=== PATIENT | female | born 1980 | race Hispanic/Latino ===

== ENCOUNTER 2017-12-12 10:32 | Emergency (ER) | payer MEDICAID, SELFPAY ==
[2017-12-12 11:30] LABS: #Basophils 0.1 thou/uL (0.0-0.2); #Lymphocytes 1.6 thou/uL (1.20-3.40); #Monocytes 0.6 thou/uL (0.11-0.59); %Basophils 0.8 % (0.0-1.0); %Eosinophils 0.6 % (0.0-10.0); %Lymphocytes 18.9 % (21.0-51.0); %Monocytes 6.8 % (0.0-10.0); Hemoglobin 9.3 g/dL (12.0-16.0); Mean Corpuscular Volume 78.2 fl (81.0-99.0); Mean Platelet Volume 8.9 fL (7.4-10.4); Platelet Count 296 thou/uL (130-400); RBC Distribution Width 15.3 % (11.5-14.5); Red Blood Cell (RBC) Count 3.73 mill/uL (4.20-5.40); White Blood Cell (WBC) Count 8.3 thou/uL (4.8-10.8)
[2017-12-12 11:32] LABS: BHCG - Serum POSITIVE (NEGATIVE); Pregs Control Background? CLEAR/WHITE (CLR/WHITE); Pregs Control Bar Appear? YES (CONTROL BAR)
[2017-12-12 11:49] LABS: ALT (SGPT) 17 U/L (8-55); AST (SGOT) 11 U/L (5-34); Albumin 3.8 g/dL (3.5-5.0); Alkaline Phosphatase 86 U/L (40-150); Anion Gap 11 mmol/L (10-20); BUN (Urea Nitrogen) 9 mg/dL (7.0-18.7); Bilirubin, Total 0.2 mg/dL (0.2-1.2); Calc. Creatinine Clearance 0 mL/min (70-130); Calcium 8.5 mg/dL (7.8-10.44); Carbon Dioxide 24 mmol/L (22-29); Chloride 105 mmol/L (98-107); Estimated GFR-MDRD Greater than 90; Globulin 2.9 g/dL (2.4-3.5); Glucose 97 mg/dL (70-105); Potassium 3.5 mmol/L (3.5-5.1); Protein, Total 6.7 g/dL (6.0-8.3); Sodium 136 mmol/L (136-145)
== END 2017-12-12 13:28 | disposition home or self-care (01) ==
LOC: ERS 10:32
DX: O03.4 Incomplete spontaneous abortion without complication (principal)
CPT/HCPCS: 36415; 80053; 84703; 85025; 86900; 86901; 99284

== ENCOUNTER 2018-07-21 01:52 | Observation (INO) | payer SELFPAY ==
[2018-07-21] MEDS ORDERED: Piperacillin/Tazobactam 4.5 GM VIAL ONE (02:23)
[2018-07-21] MEDS ORDERED: Ondansetron PF 4 MG/2 ML Vial ONE ×2 (02:23→13:15)
[2018-07-21] MEDS ORDERED: Morphine 4 MG/ML VIAL ONE (02:23)
[2018-07-21 02:57] LABS: Hemoglobin 10.2 g/dL (12.0-16.0); Mean Corpuscular HGB CONC 31.2 g/dL (32.0-36.0); Mean Corpuscular Hemoglobin 21.7 pg (27.0-31.0); Mean Corpuscular Volume 69.6 fL (78.0-98.0); Mean Platelet Volume 10.2 fL (7.4-10.4); Platelet Count 408 thou/uL (130-400); RBC Distribution Width 18.8 % (11.5-14.5); White Blood Cell (WBC) Count 16.6 thou/uL (4.8-10.8)
[2018-07-21 03:13] LABS: #Basophils 0.1 thou/uL (0.0-0.2); #Lymphocytes 1.8 thou/uL (1.20-3.40); #Monocytes 1.2 thou/uL (0.11-0.59); #Neutrophils 13.5 thou/uL (1.40-6.50); %Basophils 0.4 % (0.0-1.0); %Eosinophils 0.1 % (0.0-10.0); %Lymphocytes 10.7 % (21.0-51.0); %Monocytes 7.2 % (0.0-10.0); %Neutrophils 81.6 % (42.0-75.0); ALT (SGPT) 14 U/L (8-55); AST (SGOT) 9 U/L (5-34); Albumin 3.8 g/dL (3.5-5.0); Alkaline Phosphatase 91 U/L (40-150); Anion Gap 17 mmol/L (10-20); Anisocytosis SLIGHT = 6-15 cells (100X) (0-5/hpf); BUN (Urea Nitrogen) 7 mg/dL (7.0-18.7); Bilirubin, Total 0.5 mg/dL (0.2-1.2); Calc. Creatinine Clearance 0 mL/min (70-130); Calcium 9.2 mg/dL (7.8-10.44); Carbon Dioxide 21 mmol/L (22-29); Chloride 105 mmol/L (98-107); Elliptocytes SLIGHT = 2-5 cells (100X) (0-1/hpf); Estimated GFR-MDRD Greater than 90; Globulin 3.8 g/dL (2.4-3.5); Glucose 110 mg/dL (70-105); MDiff Complete? YES; Microcytosis SLIGHT = 6-15 cells (100X) (0-5/hpf); Potassium 3.6 mmol/L (3.5-5.1); Protein, Total 7.6 g/dL (6.0-8.3); Sodium 139 mmol/L (136-145)
[2018-07-21 03:37] LABS: BHCG - Serum Negative (NEGATIVE); Pregs Control Background? CLEAR/WHITE (CLR/WHITE); Pregs Control Bar Appear? YES (CONTROL BAR)
[2018-07-21] MEDS ORDERED: Fentanyl 100 MCG/2 ML VIAL ONE ×3 (05:03→12:28)
[2018-07-21 05:26] LABS: Bilirubin Negative (Negative); Blood, Urine Trace (Negative); Clarity CLOUDY (Clear); Glucose, Urine (Dipstick) Negative (Negative); Leukocyte Moderate (Negative); Nitrite Negative (Negative); Protein, Urine (Dipstick) Negative (Neg-Trace); Specific Gravity, Urine 1.042 (1.002-1.036); Urobilinogen 0.2 mg/dL (0.2-1.0)
[2018-07-21 05:29] LABS: Bacteria/HPF Rare-Few HPF (None Seen); Hyaline Casts/LPF 0-3 HYALINE CAST LPF (0-3 Hyaline); Pathc Cast-AUWi Flag 0.14 (0-2.49); WBC/HPF 21-50 HPF (0-3)
[2018-07-21 06:00] VITALS: BMI 31.5
[2018-07-21] MEDS ORDERED: Morphine 4 MG/ML VIAL SLOW IVP PRN (06:07)
[2018-07-21] MEDS ORDERED: Piperacillin/Tazobactam 4.5 GM in Sodium Chloride 0.9% 100 ML IVPB SCH (08:00)
--- NOTE | 2018-07-21 09:35 | CT ---
PRELIMINARY REPORT/[facility]/EMERGENTY AFTER-HOURS PROCEDURE CT Pelvis With Intravenous Contrast EXAM DATE/TIME: 07/21/2018 3:55 AM CLINICAL HISTORY: 38 years old, female; Signs and symptoms; Other: Perenium abcess TECHNIQUE: Axial computed tomography images of the pelvis with intravenous contrast. COMPARISON: No relevant prior studies available. FINDINGS: Stomach and bowel: Visualized small bowel and colon are unremarkable. Appendix: No evidence of appendicitis. Bladder: Normal. No mass. Reproductive: The uterus is normal. Intraperitoneal space: Unremarkable. No free air. No significant fluid collection. Lymph nodes: Unremarkable. No enlarged lymph nodes. Bones/joints: Unremarkable. No acute fracture. No dislocation. Soft tissues: There is a LEFT rim-enhancing 4.9 x 2.8 x 5.1 cm perianal abscess. There is a fat conta ining umbilical hernia. IMPRESSION: LEFT perineal abscess as above. Thank you for allowing us to participate in the care of your patient. Dictated and Authenticated by: Marco Craven MD 07/21/2018 4:10 AM Central Time ([place] & [place]) FINAL REPORT CT PELVIS WITH IV CONTRAST: DATE: 07/21/2018. TIME: Performed on an emergency basis at 0357 hours. HISTORY: Pelvic pain. Abscess. FINDINGS: Agree with the preliminary report by Dr. Craven from [facility]. Fluid collection consistent with abscess is centered at the left perineum, with measurements as detailed in the preliminary repor t. POS: [facility]
[2018-07-21] MEDS ORDERED: ISOVUE-370 76%-LOCM 1 ML ONE (10:11)
[2018-07-21] MEDS ORDERED: Lidocaine 2% Jelly 5 ML TUBE ONE (11:03)
[2018-07-21] MEDS ORDERED: Bupivacaine/Epinephrine 0.25% 30 ML VIAL ONE (11:03)
--- NOTE | 2018-07-21 12:07 | HP ---
DATE OF ADMISSION: 07/21/2018 CHIEF COMPLAINT: Left buttock pain. HISTORY OF PRESENT ILLNESS: This is a 38-year-old female with pain, swelling to her left bu ttock that has been worsening over the last 3-4 days associated with fever, no chills. She is afraid to have a bowel movement, because it hurts so bad. . She denies history of previous abscess t o her perineal area. No history of inflammatory bowel disease. No history of incontinence. PAST MEDICAL HISTORY: She denies. PAST SURGICAL HISTORY: She denies. MEDICINES TAKEN DAILY: None. ALLERGIES: No known drug allergies. SOCIAL HISTORY: No smoking, alcohol or other drugs. REVIEW OF SYSTEMS: Ten system review of systems otherwise negative unless described above. PHYSICAL EXAMINATION: VITAL SIGNS: Blood pressure is 90/52, pulse 75, respirations 22, temperature afebrile. HEENT: Sclerae are anicteric. Oropharynx clear. NECK: No lymphadenopathy. CHEST: Clear. HEART: Regular rate and rhythm. ABDOMEN: Soft, nontender. GENITOURINARY: Examination of her perineum is deferred. LABORATORY DATA AND IMAGING: CT scan shows a left perineal abscess, 4 cm in greatest diameter. Whit e blood cell count of 16, hemoglobin 10, creatinine 0.63. ASSESSMENT: Left perineal abscess. PLAN: Incision and drainage in the operating room, then likely home later today. Risks, benefits, a nd alternatives discussed. She gives consent.
[2018-07-21] MEDS ORDERED: Dextrose 50% Abboject 50 ML SYRINGE SLOW IVP PRN (12:09)
[2018-07-21] MEDS ORDERED: Dextrose 5% in Water 1,000 ML IV PRN (12:09)
[2018-07-21] MEDS ORDERED: hydrALAZINE 20 MG/ML VIAL SLOW IVP PRN (12:09)
[2018-07-21] MEDS ORDERED: HYDROcodone/Acetaminophen 10/325 mg Tablet PO PRN ×2 (12:09)
[2018-07-21] MEDS ORDERED: D5 1/2 NS w/20 mEq KCL 1,000 ML IV SCH (12:09)
[2018-07-21] MEDS ORDERED: Promethazine HCl 25 MG/ML VIAL IM PRN ×2 (12:09→12:24)
[2018-07-21] MEDS ORDERED: Morphine 2 MG/ML SYRINGE SLOW IVP PRN (12:09)
[2018-07-21] MEDS ORDERED: Ondansetron PF 4 MG/2 ML Vial IVP PRN (12:09)
[2018-07-21] MEDS ORDERED: Meperidine HCl/PF 25 MG/ML VIAL SLOW IVP PRN (12:24)
[2018-07-21] MEDS ORDERED: HYDROmorphone 2 MG/ML VIAL SLOW IVP PRN (12:24)
[2018-07-21] MEDS ORDERED: Promethazine HCl 25 MG/ML VIAL SLOW IVP PRN (12:24)
[2018-07-21] MEDS ORDERED: Ketorolac Tromethamine 30 MG/ML VIAL ONE (13:15)
[2018-07-21] MEDS ORDERED: Lidocaine 1% PF 5 ML VIAL ONE (13:15)
[2018-07-21] MEDS ORDERED: Dexamethasone 20 MG/5 ML VIAL ONE (13:15)
[2018-07-21] MEDS ORDERED: PROPOFOL 200 MG/20 ML VIAL ONE (13:15)
[2018-07-21] MEDS ORDERED: Vancomycin HCl 1 GM in Premix Bag 1 BAG IVPB SCH (15:30)
[2018-07-21 18:58] VITALS: BP 97/61; TEMP 99.2
[2018-07-21] MEDS ORDERED: Famotidine 20 MG TAB PO SCH (21:00)
[2018-07-21] MEDS ORDERED: Famotidine/PF 20 mg/2ml Vial SLOW IVP SCH (21:00)
--- NOTE | 2018-07-24 15:13 | DIS ---
DATE OF ADMISSION: 07/21/2018 DATE OF DISCHARGE: 07/21/2018 ADMIT DIAGNOSIS: Perirectal abscess. DISCHARGE DIAGNOSIS: Perirectal abscess. PROCEDURES: Incision and drainage in the OR by Dr. Love without complication. CONDITION ON DISCHARGE: Improved. STAFF: Dr. Love. Please see chart for details of hospitalization. Job ID: [id number]
--- NOTE | 2018-07-24 15:13 | OP ---
DATE OF PROCEDURE: 07/21/2018 PREOPERATIVE DIAGNOSIS: Perirectal abscess. POSTOPERATIVE DIAGNOSIS: Perirectal abscess. PROCEDURE PERFORMED: Incision and drainage, perirectal abscess. ANESTHESIA: General. ESTIMATED BLOOD LOSS: Minimal. COMPLICATIONS: None. SPECIMEN: Cultures taken for anaerobes and aerobes. DESCRIPTION OF PROCEDURE: The patient was taken to the operating room and laid supine on the operating room table. After general anesthetic was obtained, she was placed in lithotomy position and her perianal area was prepped and draped in a sterile fashion. Over the most fluctuant part of the abscess to the left lateral perianal area, an incision was made, exposing some purulent material. All purulence was drained. The patient also had internal and external opening in the area associated with a fistula in ANO, this was laid open. It does not involve the sphincter complex and the wound that was cauterized. Iodoform was packed in the open part of the other abscess. The patient was sent to Recovery in stable condition. All instrument counts, needle counts, and lap counts were correct. Job ID: [id number]
== END 2018-07-21 17:09 | disposition home or self-care (01) ==
LOC: ERS 01:52 → SURG A 04:43
PROVIDERS: ADMIT Surgery; ATTEND Surgery
PROC: 0D9P3ZZ Drainage of Rectum, Percutaneous Approach (ICD-10-PCS; principal; 2018-07-21)
DX: K61.1 Rectal abscess (principal); Z79.52 Long term (current) use of systemic steroids
CPT/HCPCS: 72193; 80053; 81003; 81015; 83605; 84703; 85025; 87040; 87070; 87077; 87086; 87149; 87186; 87205; 96361; 96365; 96367; 96374; 96375; 96376; G0378; J0131; J1100; J1885; J2001; J2270; J2405; J2543; J2704; J3010; J3370; J7050

== ENCOUNTER 2019-01-03 23:01 | Emergency (ER) | payer SELFPAY ==
[2019-01-03 23:58] LABS: #Basophils 0.1 thou/uL (0.0-0.2); #Eosinphils 0.1 thou/uL (0.0-0.7); #Lymphocytes 2.3 thou/uL (1.20-3.40); #Monocytes 0.7 thou/uL (0.11-0.59); #Neutrophils 6.9 thou/uL (1.40-6.50); %Basophils 0.7 % (0.0-1.0); %Monocytes 7.2 % (0.0-10.0); Hemoglobin 8.6 g/dL (12.0-16.0); Mean Corpuscular HGB CONC 30.9 g/dL (32.0-36.0); Mean Platelet Volume 9.7 fL (7.4-10.4); Platelet Count 369 thou/uL (130-400); RBC Distribution Width 17.7 % (11.5-14.5); Red Blood Cell (RBC) Count 4.08 mill/uL (4.20-5.40); White Blood Cell (WBC) Count 10.1 thou/uL (4.8-10.8)
[2019-01-03 23:59] LABS: BHCG - Serum POSITIVE (NEGATIVE); Pregs Control Background? CLEAR/WHITE (CLR/WHITE); Pregs Control Bar Appear? YES (CONTROL BAR)
[2019-01-04 00:15] LABS: ALT (SGPT) 10 U/L (8-55); AST (SGOT) 9 U/L (5-34); Albumin 3.8 g/dL (3.5-5.0); Alkaline Phosphatase 94 U/L (40-150); Anion Gap 9 mmol/L (10-20); BUN (Urea Nitrogen) 9 mg/dL (7.0-18.7); Bilirubin, Total Less than 0.2 mg/dL (0.2-1.2); CK (CPK) 74 U/L (29-168); Calc. Creatinine Clearance 0 mL/min (70-130); Calcium 8.6 mg/dL (7.8-10.44); Carbon Dioxide 25 mmol/L (22-29); Chloride 106 mmol/L (98-107); Estimated GFR-MDRD Greater than 90; Globulin 3.1 g/dL (2.4-3.5); Glucose 108 mg/dL (70-105); Lipase 15 U/L (8-78); Protein, Total 6.9 g/dL (6.0-8.3); Sodium 136 mmol/L (136-145)
[2019-01-04 01:00] LABS: Bilirubin Negative (Negative); Blood, Urine Moderate (Negative); Clarity CLEAR (Clear); Glucose, Urine (Dipstick) Negative (Negative); Leukocyte Moderate (Negative); Nitrite Negative (Negative); Protein, Urine (Dipstick) Negative (Neg-Trace); Specific Gravity, Urine 1.011 (1.002-1.036); Urobilinogen 0.2 mg/dL (0.2-1.0)
[2019-01-04 01:03] LABS: Bacteria/HPF Rare-Few HPF (None Seen); Hyaline Casts/LPF 0-3 HYALINE CAST LPF (0-3 Hyaline); Pathc Cast-AUWi Flag 0.27 (0-2.49); Squamous Epithelial 0-3 HPF (0-3)
--- NOTE | 2019-01-04 07:23 | ULT ---
PRELIMINARY REPORT US , Limited EXAM DATE/TIME: 01/04/2019 12:46 AM CLINICAL HISTORY: 38 years old, female; Pain and signs and symptoms; Lmp or gestational age (in weeks): Lmp 12/25/18; Antepartum complications; Other: Diarrhea; complicated by abdominal or pelvic pain; Lower; First trimester; Gestational age or lmp: Lmp 12/25/18; ; Patient HX: Abd pain, nausea, no abnormal vag bleeding TECHNIQUE: Imaging protocol: Real-time ultrasound of the maternal uterus with image documentation. Exam focused on the clinical indication. COMPARISON: No relevant prior studies available. FINDINGS: GESTATION: Gestation: No obvious ectopic . MATERNAL: Uterus: There is a complex heterogeneous mass lesion that appears to be in the endometrium in the body and lower uterine segment of the uterus that consists of a cystic portion with a central echogen ic nodule. It is not clear whether this is an abnormal appearing gestational sac or other mass. No rangel l appearing pole or sac are identified and there is no heart rate. The echogenic nodule was measured as a possible crown-rump length measuring 10 mm or gestational age 7 weeks 1 day. Left adnexa: There is trace free fluid in the left adnexa. Other findings: Normal Doppler flow of the ovaries. IMPRESSION: 1. There is a complex heterogeneous mass lesion that appears to be in the endometrium in the body and lower uterine segment of the uterus that consists of a cystic portion with a central echogenic nodule. It is not clear whether this is an abnormal appearing gestational sac or other mass. No rangel l appearing pole or sac are identified and there is no heart rate. The echogenic nodule was measured as a possible crown-rump length measuring 10 mm or gestational age 7 weeks 1 day. 2. There is trace free fluid in the left adnexa. 3. No obvious ectopic . Thank you for allowing us to participate in the care of your patient. Dictated and Authenticated by: Obinna Guajardo MD 01/04/2019 2:29 AM Central Time ([place] & [place]) FINAL REPORT: PELVIC SONOGRAM WITH TRANSABDOMINAL AND TRANSVAGINAL IMAGING WITH DUPLEX EVALUATION Performed on Emergency Basis 01/04/2019 at 0051 hours. HISTORY: Pelvic pain. Nausea. FINDINGS: I agree with the preliminary report by Dr. Guajardo from [facility]. Heterogeneously echogenic c omplex mass centered within the endometrial cavity contains a cystic portion and central echogenic nodule. A normal gestational sac is not visualized. Minimal free fluid within the dependent portion o f the pelvis. Good color and spectral Doppler flow within each ovary. Please consider close clinical and sonographic follow-up. Code QA. Transcribed Date/Time: 01/04/2019 8:23 AM
--- NOTE | 2019-01-04 07:24 | ULT ---
PRELIMINARY REPORT US Abdomen Limited, Right Upper Quadrant EXAM DATE/TIME: 01/04/2019 1:06 AM CLINICAL HISTORY: 38 years old, female; Pain and signs and symptoms; Nausea and other: Diarrhea; Abdominal pain; Localized; Lower; ; Patient HX: Midline abd pain, nausea, diarrhea TECHNIQUE: Imaging protocol: Real-time ultrasound of the abdomen with image documentation. Examination was focused on the right upper quadrant. COMPARISON: No relevant prior studies available. FINDINGS: Liver: The hepatic parenchyma is echogenic consistent with diffuse fatty liver. There is mild hepatomegaly with liver length 18 cm. Gallbladder: There is an echogenic calculus in the gallbladder lumen consistent with cholelithiasis with no abnormal gallbladder wall thickening or gallbladder distention and negative sonographic Brooks's sign and therefore not specific for acute cholecystitis. Common bile duct: Normal. No stones. No dilation. Pancreas: The pancreas is partially obscured by overlying bowel gas. Right kidney: The right kidney is partially obscured by bowel gas. IMPRESSION: There is an echogenic calculus in the gallbladder lumen consistent with cholelithiasis with no abnormal gallbladder wall thickening or gallbladder distention and negative sonographic Brooks's sign and therefore not specific for acute cholecystitis. Thank you for allowing us to participate in the care of your patient. Dictated and Authenticated by: Obinna Guajardo MD 01/04/2019 2:19 AM Central Time ([place] & [place]) FINAL REPORT: SONOGRAM RIGHT UPPER QUADRANT Date: 01-04-2019 Performed on emergency basis at 0107 hours. HISTORY: Right upper quadrant pain. FINDINGS: I agree with the preliminary report by Dr. Guajardo from [facility]. Cholelithiasis is confirmed . No sonographic evidence of acute cholecystitis. Hepatic steatosis. Code QA. Transcribed Date/Time: 01/04/2019 8:19 AM
[2019-01-06 23:33] LABS: Chlamydia by PCR Inconclusive (NotDetected); GC by PCR Inconclusive (NotDetected)
== END 2019-01-04 03:01 | disposition home or self-care (01) ==
LOC: ERS 23:01
DX: O20.0 Threatened abortion (principal); O09.91 Supervision of high risk pregnancy, unspecified, first trimester; O99.611 Diseases of the digestive system complicating pregnancy, first trimester; K80.20 Calculus of gallbladder without cholecystitis without obstruction; O23.41 Unspecified infection of urinary tract in pregnancy, first trimester; O99.011 Anemia complicating pregnancy, first trimester; Z3A.01 Less than 8 weeks gestation of pregnancy
CPT/HCPCS: 36415; 76705; 76856; 80053; 81003; 81015; 82550; 83690; 84702; 84703; 85025; 86900; 86901; 87086; 87491; 87591

== ENCOUNTER 2019-01-07 11:36 | Emergency (ER) | payer SELFPAY ==
--- NOTE | 2019-01-07 13:15 | ULT ---
EXAM: US Pelvic Transvag W Doppler DATE: 01/07/2019 12:23 PM INDICATION: Pelvic pain COMPARISON: Pelvic ultrasound dated January 04, 2019 FINDING: Grayscale and color Doppler images were obtained. There is a suspected gestational sac with a mean sac diameter of 6 mm now seen within the upper endom etrial cavity. No definite internal pole or yolk sac is identified. Heterogeneous material seen within the lower uterine segment measuring 8 mm possibly reflective of the previous abnormality seen within the mid uterus endometrial canal on the prior exam. This may reflect some hemorrhagic products now migrated to the region of the lower uterine segment and cervix. The ovaries were not wel l seen. No free fluid is evident. IMPRESSION: 1. of undetermined location. There is a suspected gestational sac without internal po le or yolk sac identified. Findings may related to early , pseudogestational sac from ectopic or fluid within the endometrial canal related to missed . Continued clinica l sonographic follow-up is recommended. 2. Heterogeneous debris seen within the lower uterine segment cervix may reflect hemorrhagic products . Recommend correlation clinical exam 3. Nonvisualization of the ovaries.
== END 2019-01-07 14:08 | disposition home or self-care (01) ==
LOC: ERS 11:36
DX: O20.0 Threatened abortion (principal); O22.40 Hemorrhoids in pregnancy, unspecified trimester; O99.019 Anemia complicating pregnancy, unspecified trimester
CPT/HCPCS: 36415; 76856; 84702

== ENCOUNTER 2019-02-18 21:42 | Day surgery (SDC) | payer OTHER, SELFPAY ==
[2019-02-18 22:57] LABS: #Basophils 0.1 thou/uL (0.0-0.2); #Eosinphils 0.1 thou/uL (0.0-0.7); #Lymphocytes 2.4 thou/uL (1.20-3.40); #Monocytes 0.6 thou/uL (0.11-0.59); #Neutrophils 6.7 thou/uL (1.40-6.50); %Basophils 0.9 % (0.0-1.0); %Eosinophils 1.2 % (0.0-10.0); %Lymphocytes 24.6 % (21.0-51.0); %Neutrophils 67.4 % (42.0-75.0); Anisocytosis MODERATE=16-30 cells (100X) (0-5/hpf); Hemoglobin 11.6 g/dL (12.0-16.0); MDiff Complete? YES; Mean Corpuscular HGB CONC 32.1 g/dL (32.0-36.0); Mean Corpuscular Hemoglobin 24.6 pg (27.0-31.0); Mean Corpuscular Volume 76.7 fL (78.0-98.0); Mean Platelet Volume 10.9 fL (7.4-10.4); Platelet Count 314 thou/uL (130-400); RBC Distribution Width 24.2 % (11.5-14.5); Red Blood Cell (RBC) Count 4.72 mill/uL (4.20-5.40); White Blood Cell (WBC) Count 9.9 thou/uL (4.8-10.8)
--- NOTE | 2019-02-18 23:18 | ULT ---
US Pelvic Transvag History: Pelvic pain. Evaluate for ectopic . Comparison: Ultrasound pelvis January 07, 2019 Findings: Real-time grayscale, color, and spectral analysis of the pelvis performed transabdominal an d transvaginal approach. Left ovary is not seen. Right ovary appears normal with adequate vascular flow. Within the lower uterine segment and cervix is hypoechoic debris. Uterus is incompletely evaluated as patient was in pain and unable to completely performed evaluation of the uterus. Impression: 1. Debris within the lower uterine segment/cervix without definite intrauterine although ex am is limited as patient was unable to tolerate the exam. No definite intrauterine is visualized. Close follow-up hCG and ultrasound recommended. 2. Nonvisualization left ovary. 3. No free fluid in the pelvis.
[2019-02-19] MEDS ORDERED: Fentanyl 100 MCG/2 ML VIAL ONE (01:11)
[2019-02-19] MEDS ORDERED: Famotidine/PF 20 mg/2ml Vial ONE (01:11)
[2019-02-19] MEDS ORDERED: Meperidine HCl/PF 25 MG/ML VIAL ONE (01:11)
[2019-02-19] MEDS ORDERED: Oxytocin 10 UNITS/ML VIAL ONE (01:33)
[2019-02-19] MEDS ORDERED: Ondansetron PF 4 MG/2 ML Vial ONE ×2 (02:26→11:11)
[2019-02-19] MEDS ORDERED: Morphine 4 MG/ML VIAL ONE (02:29)
--- NOTE | 2019-02-19 02:42 | OP ---
DATE OF PROCEDURE: 02/19/2019 PREOPERATIVE DIAGNOSIS: Suspected incomplete . POSTOPERATIVE DIAGNOSIS: Inevitable . PROCEDURE PERFORMED: Suction curettage of the uterus. ESTIMATED BLOOD LOSS: Less than 100 mL with her time in the operating room. COMPLICATIONS: None. PROPHYLAXIS: None. FINDINGS: 1. Moderate amount of products of conception obtained upon suction curettage. 2. Cervix widely open. BRIEF PATIENT DESCRIPTION: Ms. Higuera is a 38-year-old multigravida with a last menstrual period in mid November, who presents complaining of heavy vaginal bleeding to the ER tonight. Evaluation in the ER showed heavy bleeding with a hemoglobin of 11.6, hematocrit of 36, a platelet count of 314, a quantitative beta-hCG of 5695, and an ultrasound which showed debris in the lower uterine segment without a definite intrauterine seen. There was no free fluid in the pelvis. Assessment at the time of my evaluation in the ER was that of an incomplete with heavy bleeding, and decision was made to take her to the operating room for suction D and C. Consent was obtained via her , who speaks Malay, he is an life educator. Risks and benefits were discussed in detail and she was willing to proceed. TECHNIQUE IN DETAIL: After good general endotracheal anesthesia was achieved, the patient was prepped and draped in the usual sterile fashion in the dorsal lithotomy position using the candy-cane stirrups. The bladder was drained of a copious amount of clear urine. On bimanual examination, the uterus was 8-10 weeks in size and the cervix was widely open. A 9-mm curved Vacurette was placed in the uterine cavity and suction curettage was performed. A moderate amount of products of conception was obtained. A sharp curette was passed through all quadrants of the uterus and no remaining placental fragments were obtained. All instruments were then removed from the vagina. Instrument and sponge counts were correct. The patient tolerated the procedure well and was taken to recovery room in good condition. Job ID: [id number]
[2019-02-19] MEDS ORDERED: HYDROcodone/Acetaminophen 5/325 mg Tablet ONE (02:54)
[2019-02-19] MEDS ORDERED: PROPOFOL 200 MG/20 ML VIAL ONE (11:11)
[2019-02-19] MEDS ORDERED: Lidocaine 1% PF 5 ML VIAL ONE (11:11)
[2019-02-19] MEDS ORDERED: Ketorolac Tromethamine 30 MG/ML VIAL ONE (11:11)
[2019-02-19] MEDS ORDERED: Metoclopramide HCl 10 MG/2 ML VIAL ONE (11:11)
[2019-02-19] MEDS ORDERED: Succinylcholine Chloride 20 MG/ML 10 ml SYRINGE FS ONE (11:11)
== END 2019-02-19 ==
LOC: ERS 21:42 → SDC/OP 02-19 01:20
PROVIDERS: ATTEND Obstetrics & Gynecology
PROC: 10D17ZZ Extraction of Products of Conception, Retained, Via Natural or Artificial Opening (ICD-10-PCS; principal; 2019-02-19)
DX: O03.1 Delayed or excessive hemorrhage following incomplete spontaneous abortion (principal)
CPT/HCPCS: 76856; 84702; 85025; 86900; 86901; 88305; J0131; J1885; J2001; J2175; J2270; J2405; J2590; J2704; J2765; J3010; S0028

== ENCOUNTER 2020-06-06 15:05 | Emergency (ER) | payer OTHER | END 2020-06-06 15:37 | disposition home or self-care (01) | LOC: ERS 15:05 | DX: K65.1 Peritoneal abscess (principal); D64.9 Anemia, unspecified | CPT/HCPCS: 99283 ==

== ENCOUNTER 2020-06-08 12:28 | Emergency (ER) | payer OTHER, SELFPAY ==
[2020-06-08] MEDS ORDERED: Iopamidol-370 76% 500 ML 1 ML ONE (13:38)
[2020-06-08] MEDS ORDERED: Morphine 2 MG/ML VIAL ONE (13:40)
[2020-06-08] MEDS ORDERED: Morphine 4 MG/ML VIAL ONE ×2 (13:40→17:48)
[2020-06-08 13:46] LABS: Bilirubin Negative (Negative); Blood, Urine Negative (Negative); Clarity Clear (Clear); Glucose, Urine (Dipstick) Normal (Negative); Ketone, Urine 10 mg/dL (Negative); Leukocyte Negative Leu/uL (Negative); Nitrite Negative (Negative); Protein, Urine (Dipstick) 10 mg/dL (Neg-Trace); Specific Gravity, Urine 1.029 (1.002-1.036); Urobilinogen 3 mg/dL (Less than 2)
[2020-06-08 13:52] LABS: Pregnancy Test - Urine (BHCG) Negative (Negative); Pregu Control Background? CLEAR/WHITE (CLR/WHITE); Pregu Control Bar Appear? YES (CONTROL BAR); Specific Gravity 1.029 (1.002-1.036)
[2020-06-08] MEDS ORDERED: Fentanyl 100 MCG/2 ML VIAL ONE (15:37)
[2020-06-08] MEDS ORDERED: Ondansetron PF 4 MG/2 ML Vial ONE (15:38)
[2020-06-08 17:03] LABS: Hemoglobin 10.4 g/dL (12.0-16.0); Mean Corpuscular HGB CONC 32.4 g/dL (32.0-36.0); Mean Corpuscular Hemoglobin 22.8 pg (27.0-31.0); Mean Platelet Volume 10.5 fL (7.4-10.4); Platelet Count 328 thou/uL (130-400); RBC Distribution Width 16.9 % (11.5-14.5); Red Blood Cell (RBC) Count 4.54 mill/uL (4.20-5.40); White Blood Cell (WBC) Count 15.4 thou/uL (4.8-10.8)
[2020-06-08 17:19] LABS: #Basophils 0.1 thou/uL (0.0-0.2); #Lymphocytes 1.6 thou/uL (1.20-3.40); #Monocytes 0.8 thou/uL (0.11-0.59); #Neutrophils 12.9 thou/uL (1.40-6.50); %Basophils 0.3 % (0.0-1.0); %Eosinophils 0.2 % (0.0-10.0); %Lymphocytes 10.5 % (21.0-51.0); %Monocytes 5.2 % (0.0-10.0); %Neutrophils 83.8 % (42.0-75.0); MDiff Complete? YES; Mean Corpuscular Volume 70.5 fL (78.0-98.0); Microcytosis SLIGHT = 6-15 cells (100X) (0-5/hpf); Ovalocytes SLIGHT = 2-5 cells (100X) (0-1/hpf)
[2020-06-08 17:21] LABS: ALT (SGPT) 10 U/L (8-55); AST (SGOT) 12 U/L (5-34); Albumin 3.9 g/dL (3.5-5.0); Alkaline Phosphatase 110 U/L (40-110); Anion Gap 13 mmol/L (10-20); BUN (Urea Nitrogen) 6 mg/dL (7.0-18.7); Bilirubin, Total 0.4 mg/dL (0.2-1.2); Calc. Creatinine Clearance 0 mL/min (70-130); Calcium 8.5 mg/dL (7.8-10.44); Carbon Dioxide 21 mmol/L (22-29); Chloride 106 mmol/L (98-107); Estimated GFR-MDRD Greater than 90; Globulin 3.5 g/dL (2.4-3.5); Glucose 88 mg/dL (70-105); Lipase 5 U/L (8-78); Potassium 3.6 mmol/L (3.5-5.1); Protein, Total 7.4 g/dL (6.0-8.3); Sodium 136 mmol/L (136-145)
--- NOTE | 2020-06-08 17:29 | CT ---
CT Abdomen Pelvis W Con History: Abdominal pain Comparison: CT examination 2018 Findings: Lung bases are clear. No pericardial effusion. Transient hepatic attenuation difference inv olving hepatic segments 2 and 3. Peripheral hypodensities of hepatic segment 2 are present. Gallbladder is mildly distended. Subtle hypodensity hepatic segment 6. Spleen, pancreas, adrenal glands, kidneys are unremarkable. Small fat-containing umbilical hernia with a 2 cm neck. No evidence for adjacent inflammation. Small left-sided perianal abscess stress the approximating the left gluteal fold measuring 2.7 cm in AP dimension with craniocaudal length of 5 cm. No acute osseous abnormality. Moderate facet arthrosis lower lumbar spine. Impression: 1. Left perianal abscess as described. 2. Hypodensities in the liver for which nonemergent follow-up liver protocol CT or MRI is recommended .
== END 2020-06-08 19:10 | disposition home or self-care (01) ==
LOC: ERS 12:28
DX: K61.0 Anal abscess (principal)
CPT/HCPCS: 36415; 51702; 74177; 80053; 81003; 81025; 83690; 85025; 96372; 96374; 96375; J2270; J2405; J3010; Q9967

== ENCOUNTER 2021-05-12 09:46 | Outpatient (CLI) | payer OTHER ==
[2021-05-12 11:04] LABS: #Basophils 0.1 10x3/uL (0.0-0.2); #Eosinphils 0.1 10x3/uL (0.0-0.5); #Monocytes 0.6 10x3/uL (0.0-1.1); #Neutrophils 6.7 10x3/uL (1.5-8.4); %Basophils 0.6 % (0.0-2.0); %Eosinophils 1.2 % (0.0-6.0); %Lymphocytes 18.9 % (18.0-47.0); %Monocytes 6.3 % (0.0-10.0); %Neutrophils 72.6 % (40.0-75.0); Hemoglobin 11.2 g/dL (12.0-15.5); Mean Corpuscular HGB CONC 31.8 g/dL (32.0-36.0); Mean Corpuscular Hemoglobin 26.3 pg (27.0-33.0); Mean Corpuscular Volume 82.6 fl (81.6-98.3); Mean Platelet Volume 11.3 fl (7.4-10.4); Platelet Count 358 10x3/uL (150-450); RBC Distribution Width 13.6 % (11.5-14.5); Red Blood Cell (RBC) Count 4.26 10x6/uL (3.90-5.03); White Blood Cell (WBC) Count 9.3 10x3/uL (3.5-10.5)
[2021-05-12 11:20] LABS: BHCG - Serum Negative (NEGATIVE); Pregs Control Background? CLEAR/WHITE (CLR/WHITE); Pregs Control Bar Appear? YES (CONTROL BAR)
[2021-05-12 11:24] LABS: Anion Gap 15 mmol/L (10-20); BUN (Urea Nitrogen) 8 mg/dL (7.0-18.7); Calc. Creatinine Clearance 0 mL/min (70-130); Calcium 9.1 mg/dL (7.8-10.44); Carbon Dioxide 22 mmol/L (22-29); Chloride 107 mmol/L (98-107); Glucose 87 mg/dL (70-105); Potassium 4.2 mmol/L (3.5-5.1); Sodium 140 mmol/L (136-145)
[2021-05-12 21:53] LABS: SARS-CoV-2 PCR by NAA Not Detected (NotDetected)
== END 2021-05-12 09:47 | disposition home or self-care (01) ==
LOC: LABBT 09:46
PROVIDERS: ATTEND Surgery
DX: Z01.812 Encounter for preprocedural laboratory examination (principal); K42.9 Umbilical hernia without obstruction or gangrene; K80.20 Calculus of gallbladder without cholecystitis without obstruction; Z20.822 Contact with and (suspected) exposure to COVID-19
CPT/HCPCS: 80048; 84703; 85025; U0003; U0005

== ENCOUNTER 2021-05-15 06:15 | Day surgery (SDC) | payer OTHER, SELFPAY ==
[2021-05-14 09:41] VITALS: BMI 42.9
[2021-05-15] MEDS ORDERED: Lidocaine 1% w/Epinephrine 1:100K 20 ML VIAL ONE (06:52)
[2021-05-15] MEDS ORDERED: Bupivacaine 0.25% HCL 30 ML VIAL ONE (06:52)
[2021-05-15] MEDS ORDERED: Fentanyl 250 MCG/5 ML VIAL ONE (06:58)
[2021-05-15] MEDS ORDERED: Acetaminophen 500 MG TAB ONE (07:15)
[2021-05-15] MEDS ORDERED: Ketorolac Tromethamine 30 MG/ML VIAL ONE ×2 (07:15→08:26)
[2021-05-15 08:05] LABS: ALT (SGPT) 38 U/L (8-55); AST (SGOT) 26 U/L (5-34); Albumin 3.8 g/dL (3.5-5.0); Alkaline Phosphatase 108 U/L (40-110); Anion Gap 13 mmol/L (10-20); BUN (Urea Nitrogen) 8 mg/dL (7.0-18.7); Bilirubin, Total 0.3 mg/dL (0.2-1.2); Calc. Creatinine Clearance 207 mL/min (70-130); Carbon Dioxide 23 mmol/L (22-29); Chloride 105 mmol/L (98-107); Globulin 3.9 g/dL (2.4-3.5); Glucose 103 mg/dL (70-105); Potassium 4.4 mmol/L (3.5-5.1); Protein, Total 7.7 g/dL (6.0-8.3); Sodium 137 mmol/L (136-145)
[2021-05-15] MEDS ORDERED: Glycopyrrolate 0.2 MG/ML 5 ML SYRINGE ONE (08:26)
[2021-05-15] MEDS ORDERED: Dexamethasone 20 MG/5 ML VIAL ONE (08:26)
[2021-05-15] MEDS ORDERED: Lidocaine 1% PF 5 ML VIAL ONE (08:26)
[2021-05-15] MEDS ORDERED: PROPOFOL 200 MG/20 ML VIAL ONE (08:26)
[2021-05-15] MEDS ORDERED: Ondansetron PF 4 MG/2 ML Vial ONE ×2 (08:26→10:53)
[2021-05-15] MEDS ORDERED: Rocuronium Bromide 10 MG/ML (10ML VIAL) ONE (08:26)
[2021-05-15] MEDS ORDERED: Promethazine HCl 25 MG/ML VIAL ONE (10:53)
[2021-05-15] MEDS ORDERED: HYDROcodone/Acetaminophen 5/325 mg Tablet ONE (12:23)
[2021-05-15] MEDS ORDERED: Metoclopramide HCl 10 MG/2 ML VIAL ONE (12:56)
== END 2021-05-15 18:00 | disposition home or self-care (01) ==
LOC: SDC 06:15
PROVIDERS: ATTEND Surgery
PROC: 0FT44ZZ Resection of Gallbladder, Percutaneous Endoscopic Approach (ICD-10-PCS; principal; 2021-05-15)
PROC: 0WUF0JZ Supplement Abdominal Wall with Synthetic Substitute, Open Approach (ICD-10-PCS; principal; 2021-05-15)
DX: K80.10 Calculus of gallbladder with chronic cholecystitis without obstruction (principal); K42.9 Umbilical hernia without obstruction or gangrene; K66.0 Peritoneal adhesions (postprocedural) (postinfection); E66.9 Obesity, unspecified; Z68.41 Body mass index [BMI] 40.0-44.9, adult
CPT/HCPCS: 80053; 88302; 88304; C1781; J0690; J1100; J1885; J2405; J2550; J2704; J2765; J3010; S0020

== ENCOUNTER 2022-08-07 06:39 | Emergency (ER) | payer SELFPAY ==
[2022-08-07 07:41] LABS: #Eosinphils 0.1 thou/uL (0.0-0.7); #Lymphocytes 1.3 thou/uL (1.20-3.40); #Monocytes 0.5 thou/uL (0.11-0.59); #Neutrophils 6.3 thou/uL (1.40-6.50); %Basophils 0.4 % (0.0-1.0); %Eosinophils 0.7 % (0.0-10.0); %Monocytes 5.9 % (0.0-10.0); %Neutrophils 76.9 % (42.0-75.0); Hemoglobin 13.3 g/dL (12.0-16.0); Mean Corpuscular HGB CONC 33.3 g/dL (32.0-36.0); Mean Corpuscular Hemoglobin 29.3 pg (27.0-31.0); Mean Corpuscular Volume 88.1 fl (78.0-98.0); Mean Platelet Volume 9.1 fL (7.4-10.4); Platelet Count 279 10x3/uL (130-400); RBC Distribution Width 12.3 % (11.5-14.5); Red Blood Cell (RBC) Count 4.55 mill/uL (4.20-5.40); White Blood Cell (WBC) Count 8.2 10x3/uL (4.8-10.8)
[2022-08-07 07:56] LABS: Bacteria/HPF None Seen HPF (None Seen); Bilirubin Negative (Negative); Blood, Urine Negative (Negative); Clarity Clear (Clear); Glucose, Urine (Dipstick) Normal (Negative); Ketone, Urine 20 mg/dL (Negative); Leukocyte 25 Leu/uL (Negative); Nitrite Negative (Negative); Protein, Urine (Dipstick) Negative (Neg-Trace); RBC/HPF 0-3 HPF (0-3); Specific Gravity, Urine 1.014 (1.002-1.036); Squamous Epithelial 0-3 HPF (0-3); Urobilinogen Normal mg/dL (Less than 2)
[2022-08-07 08:01] LABS: ALT (SGPT) 96 U/L (8-55); AST (SGOT) 47 U/L (5-34); Alkaline Phosphatase 121 U/L (40-110); Anion Gap 12 mmol/L (10-20); BUN (Urea Nitrogen) 10 mg/dL (7.0-18.7); Bilirubin, Total 0.4 mg/dL (0.2-1.2); Calc. Creatinine Clearance 0 mL/min (70-130); Carbon Dioxide 25 mmol/L (22-29); Chloride 104 mmol/L (98-107); Estimated GFR 112; Globulin 3.2 g/dL (2.4-3.5); Glucose 118 mg/dL (70-105); Lipase 10 U/L (8-78); Potassium 3.3 mmol/L (3.5-5.1); Protein, Total 7.2 g/dL (6.0-8.3); Sodium 138 mmol/L (136-145)
[2022-08-07] MEDS ORDERED: Potassium Chloride 20 MEQ TAB ONE (08:42)
== END 2022-08-07 09:04 | disposition home or self-care (01) ==
LOC: ERS 06:39
DX: R06.00 Dyspnea, unspecified (principal); R53.1 Weakness
CPT/HCPCS: 71045; 80053; 81003; 81015; 83690; 84484; 85025; 87086; 93005